=== PATIENT | female | born 1940 | race Caucasian/White ===

== ENCOUNTER 2017-02-24 06:40 | Inpatient (IN) ==
[2017-02-24 06:58] LABS: MANUAL DIFF NEEDED? NO
[2017-02-24 07:01] LABS: BASO% 0.2 % (0.0-0.8); EOS# 0.06 X1000 (0.0-0.7); EOS% 0.4 % (0.0-10.0); HEMATOCRIT 44.3 % (37.0-47.0); HEMOGLOBIN 14.3 g/dL (12.0-16.0); IMM GRAN# 0.02 X1000 (0.0-0.04); IMM GRAN% 0.1 % (0.0-0.5); LYMPH% 11.1 % (20.5-51.1); MCH 32.1 PG (27-31); MCHC 32.3 g/dL (33-37); MCV 99.3 FL (81-99); MONO# 0.76 X1000 (0.11-0.59); MONO% 5.6 % (1.7-9.3); NEUT% 82.6 % (42.2-75.2); PLT 330 X1000 (130-400); RBC 4.46 XMIL (4.2-5.4)
--- NOTE | 2017-02-24 07:09 | EKG Report ---
Test Performed on : 02/24/2017 06:34:42 AM Test Reason : SOB Blood Pressure : / mmHG Vent. Rate : 135 BPM Atrial Rate : 135 BPM P-R Int : 116 ms QRS Dur : 128 ms QT Int : 280 ms P-R-T Axes : 086 071 120 degrees QTc Int : 420 ms Sinus tachycardia. Biatrial enlargement Left ventricular hypertrophy with QRS widening and repolarization abnormality Abnormal ECG When compared with ECG of 20-JAN-2017 11:59, ST more depressed in Lateral leads T wave inversion more evident in Lateral leads Unconfirmed Result
[2017-02-24 07:11] LABS: INR 0.96; PTT 23.6 Seconds (22.0-36.0)
--- NOTE | 2017-02-24 07:23 | Diag Imaging Result Doc PS360 ---
EXAM: CHEST-PORTABLE HISTORY: SOB TECHNIQUE: Portable AP COMPARISON: 01/20/2017 FINDINGS: The lungs are hyperexpanded. Heart is not enlarged. The pulmonary vessels are small. No consolidation. No pleural effusions identified. I believe there is scarring in the lung bases. IMPRESSION: Emphysema Electronically signed by Griffin Eid 02/24/2017 7:21 AM
[2017-02-24 07:35] LABS: ALBUMIN 4.2 g/dL (3.5-5.0); CALCIUM 9.3 mg/dL (8.8-10.2); MAGNESIUM 1.9 mg/dL (1.5-2.7); POTASSIUM 4.2 mmol/L (3.5-5.1); TOTAL BILIRUBIN 0.41 mg/dL (0.20-1.00); TOTAL PROTEIN 7.1 g/dL (6.3-8.3)
[2017-02-24 08:44] LABS: ALLEN TEST YES; BE 10.1 mmoll (-3.0-3.0); BLOOD TYPE ARTERIAL; DRAW SITE R RADIAL; METHB 1.1 % (0.0-1.5); O2(CT) 16.7 mL/dL (15.0-23.0); PCO2(98.6) 47 mmHg (35-45); PO2(98.6) 147 mmHg (60-100); SAMPLE BLOOD; SAO2 99.1 % (95.0-100.0); THB 12.1 g/dL (11.5-17.4); pH(98.6) 7.48 (7.35-7.45)
[2017-02-24 08:45] LABS: MODALITY BI PAP
[2017-02-24] MEDS ORDERED: ROCEPHIN 1 GM in NS 50 ML IV ONE (08:54)
[2017-02-24] MEDS ORDERED: FLUZONE QUAD 2017-2018 SYRINGE IM ONE (10:16)
[2017-02-24] MEDS ORDERED: SODIUM CHLORIDE 0.9% INJ SCH (13:15)
[2017-02-24] MEDS: SOLU-MEDROL IV SCH ×2 (13:43→20:17)
[2017-02-24] MEDS: PROTONIX IV SCH (13:43)
[2017-02-24] MEDS: CLINIMIX E 4.25%-5% SOLUTION 1,000 ML IV SCH (13:43)
[2017-02-24] MEDS: ZOSYN 3.375 GM in NS 50 ML IV SCH ×2 (13:43→20:15)
[2017-02-24] MEDS: LOVENOX SUBQ SCH (13:43)
[2017-02-24] MEDS: ULTRAM PO PRN (15:20)
[2017-02-24] MEDS: SPIRIVA INH SCH (19:25)
[2017-02-24] MEDS: BREO ELLIPTA 100/25 MCG INH INH SCH (19:25)
[2017-02-24] MEDS: PERICOLACE PO SCH (20:16)
[2017-02-24] MEDS: COREG PO SCH (20:16)
[2017-02-24] MEDS: VASOTEC PO SCH (20:17)
[2017-02-24] MEDS: MIRAPEX PO SCH (20:20)
--- NOTE | 2017-02-25 00:07 | ECHO REPORT ---
ORDER DATE: 02/24/2017 MEASUREMENTS: Left ventricular end-diastolic diameter 4.3, septal thickness 1.7, posterior wall thickness 1.5, aortic root 2.7, left atrium 3.4. SUMMARY: 1. Adequate quality study. 2. Aortic valve was without structural abnormality and opens normally on 2-dimensional images. Mitral valve demonstrates mild thickening of anterior mitral leaflet and posterior mitral leaflet with normal mitral valve opening. There is very mild mitral regurgitation. Tricuspid and pulmonic valves are without structural abnormality with trace tricuspid regurgitation. Aortic root is normal size. 3. Borderline left ventricular enlargement with moderate concentric left hypertrophy is demonstrated. Estimated left ventricular ejection fraction approximately 60% in the setting of global hypokinesis and paradoxical septal wall motion probably due to underlying interventricular conduction abnormality. Left atrium, right atrium, and right ventricle are normal in size with normal right ventricular systolic function. 4. No pericardial effusion. 5. Appearance of inferior vena cava suggests normal central venous pressure. CONCLUSIONS: 1. Very mild mitral regurgitation. 2. Borderline left ventricular enlargement with moderate concentric left hypertrophy demonstrated with estimated left ejection fraction 20%. 3. Paradoxical septal wall motion probably due to underlying interventricular conduction abnormality. cc: MD Дмитрий Ward MD
[2017-02-25] MEDS: ZOSYN 3.375 GM in NS 50 ML IV SCH ×4 (01:08→20:04)
[2017-02-25] MEDS: ULTRAM PO PRN (03:54)
[2017-02-25] MEDS: SOLU-MEDROL IV SCH ×4 (03:54→20:04)
[2017-02-25 04:46] LABS: ALLEN TEST YES; BE 8.5 mmoll (-3.0-3.0); BLOOD TYPE ARTERIAL; DRAW SITE R RADIAL; MODALITY CANNULA; O2(CT) 17.1 mL/dL (15.0-23.0); PCO2(98.6) 43 mmHg (35-45); PO2(98.6) 68 mmHg (60-100); SAMPLE BLOOD; SAO2 90.8 % (95.0-100.0); THB 13.4 g/dL (11.5-17.4); pH(98.6) 7.49 (7.35-7.45)
[2017-02-25 05:08] LABS: HEMATOCRIT 41.2 % (37.0-47.0); HEMOGLOBIN 13.4 g/dL (12.0-16.0); LYMPH# 1.21 X1000 (1.2-3.4); MANUAL DIFF NEEDED? YES; MCH 32.1 PG (27-31); MCHC 32.5 g/dL (33-37); MCV 98.6 FL (81-99); MPV 10.1 FL (7.4-10.4); PLT 282 X1000 (130-400); RBC 4.18 XMIL (4.2-5.4)
[2017-02-25 05:27] LABS: AGAP 11; BUN 31 mg/dL (8-22); CALCIUM 9.1 mg/dL (8.8-10.2); CHLORIDE 100 mmol/L (98-107); CK PROFILE 105 U/L (24-173); COSMO 299; HDL 93 mg/dL (45-65); LDL 58 mg/dL; SODIUM 143 mmol/L (136-145); TCO2 32 mmol/L (25-35); TRIGLYCERIDES 64 mg/dL (35-135); VLDL 13 mg/dL
[2017-02-25 05:29] LABS: BANDS 4 % (0-1); LYMPHS 10 % (21-51); MONO 2 % (1-9)
[2017-02-25 05:42] LABS: FREE T4 1.21 ng/dL (0.93-1.70)
[2017-02-25] MEDS: HUMULIN R SUBQ SCH ×4 (06:30→20:07)
[2017-02-25] MEDS: SPIRIVA INH SCH ×2 (06:33→19:03)
--- NOTE | 2017-02-25 07:20 | Diag Imaging Result Doc PS360 ---
CHEST-1 VIEW - 02/25/2017 INDICATION: SOB TECHNIQUE: COMPARISON: 02/24/2017 FINDINGS: Stable hyperexpanded lungs compatible with COPD. Heart size remains borderline enlarged. Pulmonary vascularity remains normal. No focal infiltrates, pneumothorax, or pleural effusion. IMPRESSION: No change from prior. Electronically signed by Jaden Yu 02/25/2017 7:18 AM
[2017-02-25] MEDS: BREO ELLIPTA 100/25 MCG INH INH SCH (07:30)
[2017-02-25] MEDS: VASOTEC PO SCH ×2 (08:11→20:04)
[2017-02-25] MEDS: ASPIRIN PO SCH (08:11)
[2017-02-25] MEDS: ELOCON CREAM TOP SCH (08:11)
[2017-02-25] MEDS: CLINIMIX E 4.25%-5% SOLUTION 1,000 ML IV SCH ×2 (08:11→10:22)
[2017-02-25] MEDS: COREG PO SCH ×2 (08:12→20:04)
[2017-02-25] MEDS: PAXIL PO SCH (08:12)
--- NOTE | 2017-02-25 08:49 | EKG Report ---
Test Performed on : 02/25/2017 06:44:23 AM Test Reason : cp Blood Pressure : / mmHG Vent. Rate : 078 BPM Atrial Rate : 078 BPM P-R Int : 138 ms QRS Dur : 134 ms QT Int : 486 ms P-R-T Axes : 086 -17 116 degrees QTc Int : 554 ms Normal sinus rhythm. Left bundle branch block Abnormal ECG When compared with ECG of 24-FEB-2017 06:34, Vent. rate has decreased BY 57 BPM Left bundle branch block is now present Confirmed by Renée AMES, Franklyn Bennett ([id number]) on 02/27/2017 6:37:58 AM
[2017-02-25] MEDS ORDERED: LASIX IV SCH (09:00)
[2017-02-25] MEDS: LOVENOX SUBQ SCH (13:01)
[2017-02-25] MEDS: PROTONIX IV SCH (13:01)
[2017-02-25] MEDS: PERICOLACE PO SCH (20:04)
[2017-02-25] MEDS: MIRAPEX PO SCH (20:04)
[2017-02-25] MEDS: DUONEB (A & A) INH PRN (20:10)
[2017-02-26] MEDS: ZOSYN 3.375 GM in NS 50 ML IV SCH ×4 (02:00→20:23)
[2017-02-26 04:55] LABS: HEMATOCRIT 36.8 % (37.0-47.0); IMM GRAN# 0.02 X1000 (0.0-0.04); IMM GRAN% 0.2 % (0.0-0.5); LYMPH# 0.99 X1000 (1.2-3.4); MANUAL DIFF NEEDED? NO; MCH 32.2 PG (27-31); MCHC 32.6 g/dL (33-37); MCV 98.7 FL (81-99); MONO# 0.42 X1000 (0.11-0.59); MONO% 3.4 % (1.7-9.3); NEUT% 88.4 % (42.2-75.2); PLT 288 X1000 (130-400); RBC 3.73 XMIL (4.2-5.4)
[2017-02-26 05:00] LABS: INR 0.93; PROTIME 9.7 Seconds (9.2-11.7)
[2017-02-26] MEDS: SOLU-MEDROL IV SCH ×3 (05:05→22:45)
[2017-02-26 05:07] LABS: CALCIUM 8.9 mg/dL (8.8-10.2); POTASSIUM 4.1 mmol/L (3.5-5.1)
[2017-02-26] MEDS: CLINIMIX E 4.25%-5% SOLUTION 1,000 ML IV SCH (06:16)
[2017-02-26] MEDS: HUMULIN R SUBQ SCH ×4 (06:16→20:24)
--- NOTE | 2017-02-26 07:17 | Diag Imaging Result Doc PS360 ---
EXAM: CHEST-1 VIEW INDICATION: SOB TECHNIQUE: One view COMPARISON: 06/28/2016 FINDINGS: COPD changes are again noted. The lungs are grossly clear. No new consolidations are appreciated. Cardiac silhouette is stable. IMPRESSION: Stable chest with no definite acute pathology. Electronically signed by John Paul Weaver 02/26/2017 7:14 AM
[2017-02-26] MEDS: VASOTEC PO SCH ×2 (08:08→20:23)
[2017-02-26] MEDS: PAXIL PO SCH (08:09)
[2017-02-26] MEDS: ELOCON CREAM TOP SCH (08:09)
[2017-02-26] MEDS: LASIX IV SCH (08:09)
[2017-02-26] MEDS: ASPIRIN PO SCH (08:09)
[2017-02-26] MEDS: COREG PO SCH ×2 (08:09→20:23)
[2017-02-26] MEDS: DUONEB (A & A) INH PRN ×3 (09:35→22:24)
[2017-02-26] MEDS: BREO ELLIPTA 100/25 MCG INH INH SCH (09:35)
[2017-02-26] MEDS ORDERED: LEXISCAN ONE (13:26)
[2017-02-26] MEDS: LOVENOX SUBQ SCH (15:15)
[2017-02-26] MEDS: PROTONIX IV SCH (15:15)
--- NOTE | 2017-02-26 15:49 | Diag Imaging Result Document ---
PROCEDURE NAME: MYOCARDIAL PERF SCAN, STR/REST - 02/26/2017 LEXISCAN CARDIOLITE STRESS TEST: Lexiscan was infused, per standard protocol. 1. Baseline electrocardiogram revealed normal sinus rhythm, left bundle branch block. 2. Stress electrocardiogram was nondiagnostic. Following Lexiscan infusion, Cardiolite was injected. There was no chest pain. 10.4 mCi of Cardiolite was injected for the rest phase, 32.5 mCi of Cardiolite was injected for the stress phase. Gated SPECT images were obtained in standard views. Images revealed normal left ventricular cavity size. There is normal myocardial perfusion. Left ventricular ejection fraction by gated SPECT was 38%. 3. Visual assessment of left ventricular ejection fraction was 55%. CONCLUSIONS: 1. No chest pain. 2. Nondiagnostic stress electrocardiogram. 3. Normal myocardial perfusion. 4. Calculated ejection fraction by gated SPECT was 38%. Visual estimated ejection fraction was 50% to 55%. Recommend echocardiogram to assess cardiac and valvular function, or assessment of left ventricular ejection fraction. cc: MD Дмитрий Darby MD
[2017-02-26] MEDS: PERICOLACE PO SCH (20:23)
[2017-02-26] MEDS: MIRAPEX PO SCH (20:23)
[2017-02-26] MEDS: SPIRIVA INH SCH (22:23)
[2017-02-26] MEDS: ULTRAM PO PRN (22:45)
[2017-02-27] MEDS: ZOSYN 3.375 GM in NS 50 ML IV SCH ×2 (02:51→08:03)
[2017-02-27] MEDS: CLINIMIX E 4.25%-5% SOLUTION 1,000 ML IV SCH (02:52)
[2017-02-27] MEDS: DUONEB (A & A) INH PRN ×2 (03:12→10:09)
[2017-02-27 05:51] LABS: AGAP 10; BUN 45 mg/dL (8-22); CALCIUM 9.3 mg/dL (8.8-10.2); CHLORIDE 99 mmol/L (98-107); COSMO 295; POTASSIUM 4.1 mmol/L (3.5-5.1); SODIUM 140 mmol/L (136-145); TCO2 31 mmol/L (25-35)
[2017-02-27 05:53] LABS: HEMATOCRIT 39.4 % (37.0-47.0); HEMOGLOBIN 12.7 g/dL (12.0-16.0); LYMPH# 0.82 X1000 (1.2-3.4); LYMPH% 8.7 % (20.5-51.1); MANUAL DIFF NEEDED? YES; MCH 31.9 PG (27-31); MCHC 32.2 g/dL (33-37); MONO# 0.27 X1000 (0.11-0.59); MONO% 2.9 % (1.7-9.3); MPV 10.1 FL (7.4-10.4); NEUT% 88.4 % (42.2-75.2); PLT 290 X1000 (130-400); RBC 3.98 XMIL (4.2-5.4)
[2017-02-27] MEDS: HUMULIN R SUBQ SCH ×2 (06:05→10:42)
[2017-02-27] MEDS: SOLU-MEDROL IV SCH (06:05)
[2017-02-27 06:16] LABS: LYMPHS 4 % (21-51); MONO 2 % (1-9)
--- NOTE | 2017-02-27 07:12 | Diag Imaging Result Doc PS360 ---
EXAM: CHEST-1 VIEW HISTORY: SOB TECHNIQUE: Portable AP COMPARISON: 02/26/2017 FINDINGS: The lungs are hyper expanded. The heart is borderline mildly prominent enlarged. The vessels are not distended. There are no infiltrates. No effusion identified. IMPRESSION: Emphysema. Electronically signed by Griffin Eid 02/27/2017 7:10 AM
[2017-02-27] MEDS ORDERED: PREVNAR 13 IM ONE (07:47)
[2017-02-27] MEDS: BREO ELLIPTA 100/25 MCG INH INH SCH (07:49)
[2017-02-27 08:01] VITALS: BP 154/63
[2017-02-27] MEDS: ASPIRIN PO SCH (08:19)
[2017-02-27] MEDS: LASIX IV SCH (08:19)
[2017-02-27] MEDS: PAXIL PO SCH (08:19)
[2017-02-27] MEDS: COREG PO SCH (08:19)
[2017-02-27] MEDS: VASOTEC PO SCH (08:19)
[2017-02-27] MEDS: ELOCON CREAM TOP SCH (08:19)
[2017-02-27] MEDS: ULTRAM PO PRN (09:57)
== END 2017-02-27 11:27 | disposition home or self-care (01) ==
LOC: ED 06:40 → 3S 09:27
PROVIDERS: ADMIT Internal Medicine; ATTEND Internal Medicine